=== PATIENT | female | born 1935 | race Caucasian/White ===

== ENCOUNTER → 2019-05-04 | Outpatient (CLI) | payer OTHER, MEDICARE ==
[~2019-05-04] MED LIST: ALDACTONE25 MG PO; COUMADIN PO; FUROSEMIDE 40 M40 M1 PO; LIPITOR20 MG PO; NEPHROCAPS SOFT1 CAP PO; NORCO 5-325 TA1 EACH PO; OMEPRAZOLE; PACERONE 200 M200 M1 NG; TRICOR; TYLENOL EX167 MG/5 M PO
== END ==
LOC: CAT 10:27
DX: S06.5X9A Traumatic subdural hemorrhage with loss of consciousness of unspecified duration, initial encounter (principal); X58.XXXA Exposure to other specified factors, initial encounter; Y93.89 Activity, other specified; Y92.89 Other specified places as the place of occurrence of the external cause; Y99.8 Other external cause status